=== PATIENT | male | born 1965 | race Caucasian/White ===

== ENCOUNTER 2022-12-31 12:44 | Emergency (ER) | payer OTHER ==
[~2022-12-31] VITALS: Ht 149.8 cm; Wt 55.3 kg
[2022-12-31] MEDS ORDERED: METOPROLOL25 MG PO (13:00)
[2022-12-31 13:29] LABS: BASO # 0.1 10*3/uL (0.0-0.1); BASO % 1.2 % (0.0-1.0); EOS # 0.1 10*3/uL (0.0-0.4); EOS % 2.1 % (1.0-4.0); HEMATOCRIT 43.4 % (42.0-52.0); LYMPH # 1.7 10*3/uL (1.3-4.4); LYMPH % 40.1 % (27.0-41.0); MEAN CORPUSCULAR HGB 36.8 pg (27.0-31.0); MEAN CORPUSCULAR HGB CONC 34.1 g/dl (33.0-37.0); MEAN PLATELET VOLUME 9.9 fl (9.6-12.3); MONO # 0.5 10*3/uL (0.1-1.0); MONO % 12.4 % (3.0-9.0); NEUT # 1.8 10*3/uL (2.3-7.9); NEUT % 43.5 % (47.0-73.0); PLATELET COUNT AUTOMATED 194 10*3/uL (130-400); RED BLOOD COUNT 4.02 10*6/uL (4.50-5.90); RED CELL DISTRI WIDTH 12.9 % (0-14.5); WHITE BLOOD COUNT 4.2 10*3/uL (4.8-10.8)
[2022-12-31] MEDS ORDERED: METOPROLOL TAR100 M1 PO (13:40)
[2022-12-31 13:42] LABS: ACT PARTIAL THROMBO TIME 27.1 SECONDS (20.0-32.1); INTERNATIONAL NORM RATIO 1.1 (2.0-3.5)
[2022-12-31 13:51] LABS: ALKALINE PHOSPHATASE 48 U/L (46-116); BUN 6 mg/dl (9-23); CHLORIDE 109 mmol/L (98-107); LIPASE 48 U/L (12-53); POTASSIUM 3.3 mmol/L (3.4-5.1); SGPT/ALT 40 U/L (10-49)
== END 2022-12-31 19:10 | disposition home or self-care (01) ==
LOC: ED 12:44
PROVIDERS: Emergency Medicine
DX: F10.920 Alcohol use, unspecified with intoxication, uncomplicated (principal); R55 Syncope and collapse; Z79.899 Other long term (current) drug therapy; Y90.8 Blood alcohol level of 240 mg/100 ml or more